=== PATIENT | male | born 1965 | race Caucasian/White ===

== ENCOUNTER 2025-07-08 14:20 | Outpatient (CLI) | payer MEDICAID ==
[~2025-07-08 14:20] MED LIST: NO HOME MEDS
--- NOTE | 2025-07-08 15:16 | RADIOLOGY REPORT ---
CLINICAL INDICATION: MEMORY LOSS COMPARISON: None TECHNIQUE: Multisequence multiplanar MRI images of the brain were obtained without contrast. FINDINGS: Motion artifact limits evaluation on some sequences. No acute infarct or hemorrhage. No ma ss or midline shift. Scattered areas of T2/FLAIR hyperintense signal in the periventricular and subco rtical white matter are nonspecific, but most likely sequelae of chronic small vessel ischemic diseas e. Ventricles and sulci are within normal limits. Basal cisterns are patent. Cerebellum, brainstem, a nd midline structures are within normal limits. Mild mucosal thickening of the paranasal sinuses. Orb its are grossly unremarkable. IMPRESSION: 1. No evidence of acute intracranial abnormality. 2. Nonacute findings as described above. 3. Motion artifact limits evaluation on some sequences.
== END 2025-07-08 23:59 | disposition home or self-care (01) ==
LOC: MRI02 14:20
PROVIDERS: ATTEND Neuromusculoskeletal Medicine & OMM
DX: R41.3 Other amnesia (principal)
CPT/HCPCS: 70551